=== PATIENT | female | born 1945 | race Caucasian/White ===

== ENCOUNTER 2016-12-13 12:49 | Inpatient (IN) | payer OTHER ==
[~2016-12-13] VITALS: Ht 162.6 cm; Wt 59.7 kg
[~2016-12-13 12:49] MED LIST: ADULT LOW DOSE81 M1; ADULT LOW DOSE81 M1 PO; ADVAIR 250/501 DISK IH; ALLERGY EYE DRO10 ML BOTH EYES; AMBIEN10 MG PO; AMBIEN5 MG PO; AMITIZA24 MICROGR PO; AMITRIPTYLINE H10 MG PO; AMITRIPTYLINE H50 MG PO; AMITRIPTYLINE H75 MG PO; ANTIHIST12.5 MG/5 PO; ANTIVERT25 MG PO; ASCORBIC ACID500 M3 PO; ASPIRIN81 M1 PO; ATARAX,VISTARIL25 MG PO; ATIVAN0.5 MG PO; ATIVAN1 MG PO; ATIVAN2 MG PO; AVELOX400 MG PO; Advair HFA 115/21 IH; Ativan PO; BACTRIM,SEPT1 TABLET PO; BAYER ASPIRIN325 M1 PO; BENADRYL25 MG PO; BIOTIN 5000MCG PO; BIOTIN1000 MICRO PO; BISACODYL SUPP10 MG PR; BISACODYL5 MG PO; CALCITRATE200 MG PO; CIPRO250 MG PO; CIPRO500 MG PO; CIPROFLOXACIN500 M1 PO; CITRACAL200 MG PO; COMPAZINE; CYCLOBENZAPRINE10 MG PO; Chronulac,Cephulac,E PO; DAILY VALUE1 EACH PO; DELTASONE2.5 MG PO; DILAUDID PAIN PUMP; DILAUDID4 MG PO; DIMENHYDRINATE50 MG PO; DOCUSATE SODIU100 MG PO; ELAVIL50 MG PO; ELAVIL75 MG PO; FLEXERIL10 MG PO; FLORASTOR250 MG PO; FOLIC ACID1 MG PO; FUROSEMIDE20 MG PO; GABAPENTIN100 MG PO; GABAPENTIN300 M1 PO; GABAPENTIN300 MG PO; GABAPENTIN400 MG PO; GABAPENTIN600 MG PO; K-DUR20 MEQ PO; K-Dur PO; KEFLEX500 MG PO; LASIX; LASIX80 MG PO; LEXAPRO10 MG PO; LIDODERM 5% P1 PATCH TD; LORAZEPAM0.5 MG PO; LOVENOX40 MG/0.4 SC; LYRICA100 MG PO; LYRICA75 MG PO; MEDROL DOSEPAK4 MG PO; MELOXICAM7.5 MG PO; METHOTREXATE2.5 MG PO; METOCLOPRAM5 MG/1 M1 PO; MILK OF MAGNESI10 ML PO; MIRALAX17 GM PO; MORPHINE SULFAT30 M1 PO; MORPHINE SULFAT30 M5 PO; MSIR PO; MULTIVITAMIN1 EAC2; MULTIVITAMIN1 EAC2 PO; NABUMETONE500 MG PO; NEURONTIN300 MG PO; NEURONTIN600 MG PO; NEXIUM40 MG PO; NITROFURANTOIN50 MG PO; ONE-A-DAY WOME1 EACH PO; OS-CAL 500+D T1 EAC1 PO; OXYCODONE HCL20 M1 PO; OXYCODONE HCL30 MG PO; OXYCODONE-APAP1 EACH PO; OxyCODONE PO; PANTOPRAZOLE SO40 MG PO; PAXIL10 MG PO; POLYETHYLENE GL17 GM PO; PREDNISONE1 MG PO; PREDNISONE2.5 MG PO; PREDNISONE20 MG PO; PREDNISONE5 MG PO; PRILOSEC20 MG PO; PROTONIX40 MG PO; PROVENTIL HFA6.7 GM IH; PriLOSEC OTC PO; Proventil,Ventolin H IH; REGLAN10 MG PO; REGLAN5 MG PO; RELAFEN750 MG PO; REMERON15 M2 PO; REMICADE10 MG/ML IV; ROXICODONE30 MG PO; Relafen PO; SENNA-TIME S T1 EACH PO; SUCRALFATE1 GM PO; SUCRALFATE1 GM/10 ML PO; SYMBICORT INHALER; SYMBICORT60 INHALA1; SYMBICORT60 INHALA1 IH; SYMBICORT60 INHALAT IH; Skelaxin PO; THERAGRAN1 TABLET PO; TIZANIDINE HCL4 M1 PO; TOPAMAX50 MG PO; TYLENOL EXTRA500 MG PO; TYLENOL WITH C1 EACH PO; VITAMIN D2000 UNIT PO; VITAMIN D31000 UNIT PO; ZANAFLEX4 MG PO; ZANTAC150 MG PO; ZOFRAN4 MG PO; Zithromax PO; [UNRECOGNIZED DRUG - OTHER]
[2016-12-13 14:06] LABS: HEMATOCRIT 37.9 % (36.0-46.0); MCH 25.6 PG (29.0-34.0); MCHC 31.9 G/DL (30.0-36.0); MCV 80.3 FL (83-99); PLATELET COUNT 172 K/uL (156-360); RBC DIS.WIDTH-SD 46.5 % (39-53); RED BLOOD COUNT 4.72 M/uL (3.80-5.20); WHITE BLOOD COUNT 5.5 K/uL (4.1-10.2)
[2016-12-13 14:17] LABS: CHLORIDE 102 mEq/L (99-109); POTASSIUM 3.6 mEq/L (3.7-5.4); SODIUM 137 mEq/L (136-147)
[2016-12-13 14:19] LABS: GLUCOSE 89 mg/dL (70-99)
[2016-12-13 14:20] LABS: ANION GAP 9 MEQ/L (2-14)
[2016-12-13 14:21] LABS: TOTAL BILIRUBIN 0.5 mg/dL (0.0-1.0)
[2016-12-13 14:22] LABS: ALKALINE PHOSPHATASE 77 IU/L (3-129)
[2016-12-13 14:23] LABS: GFR ESTIMATE (CALCULATED) 47 mL/min/
[2016-12-13 14:24] LABS: UREA NITROGEN (BUN) 23 mg/dL (9-23)
[2016-12-13 14:29] LABS: LIPASE 3 U/L (1.0-51.0)
[2016-12-13 15:01] LABS: ADD MIUA? YES; BILIRUBIN NEGATIVE; BLOOD NEGATIVE; COLOR AMBER ((YELLOW)); GLUCOSE (STRIP) NEGATIVE; KETONES 5; LEUKOCYTES LARGE; NITRITE POSITIVE; PROTEIN (STRIP) 30; SPECIFIC GRAVITY 1.017 (1.000-1.030); UROBILINOGEN 0.2 MG/DL (0.2-1.0)
[2016-12-13 15:28] LABS: BACTERIA 2+ /HPF; CASTS NONE SEEN /LPF; CRYSTALS NONE SEEN; EPITHELIAL CELLS 2+ /HPF; MUCUS NONE SEEN /LPF; RED BLOOD CELLS NONE SEEN /HPF (0-5); UCUL ADDED? YES; WHITE BLOOD CELLS TNTC /HPF (0-5)
[2016-12-13] MEDS ORDERED: PROTONIX40 MG PO (18:30)
[2016-12-13 22:12] VITALS: BP 125/73
[2016-12-14 07:00] VITALS: BP 121/65
[2016-12-14 09:20] LABS: HEMATOCRIT 34.4 % (36.0-46.0); MCH 26.2 PG (29.0-34.0); MCHC 31.7 G/DL (30.0-36.0); MCV 82.7 FL (83-99); MEAN PLAT.VOLUME 11.5 uM^3 (9.5-12.4); PLATELET COUNT 132 K/uL (156-360); RBC DIS.WIDTH-CV 16.5 % (11.8-14.6); RBC DIS.WIDTH-SD 49.1 % (39-53); RED BLOOD COUNT 4.16 M/uL (3.80-5.20); WHITE BLOOD COUNT 3.4 K/uL (4.1-10.2)
[2016-12-14 09:23] LABS: ANION GAP 8 MEQ/L (2-14); CHLORIDE 110 MEQ/L (99-109); GFR ESTIMATE (CALCULATED) > 59 mL/min/; GLUCOSE 74 mg/dL (70-99); POTASSIUM 3.7 MEQ/L (3.7-5.4); SAMPLE HEMOLYSIS CHECK 0; SAMPLE ICTERIC CHECK 0; SAMPLE LIPEMIA CHECK 0; SODIUM 141 MEQ/L (136-147); UREA NITROGEN (BUN) 11 mg/dL (9-23)
[2016-12-14 09:24] LABS: INTER. NORMALIZED RATIO 1.3; PROTHROMBIN TIME 12.9 (9.2-11.2)
[2016-12-14 15:11] VITALS: BP 134/76
[2016-12-14 18:10] VITALS: BP 144/82
[2016-12-15 06:48] LABS: EOSINOPHIL (%) 3.9 % (0-5); EOSINOPHIL COUNT 0.2 K/uL (0-0.3); HEMATOCRIT 34.1 % (36.0-46.0); IMMATURE GRANULOCYTE (%) 0.5 % (0.0-0.7); INSTRUMENT ABS NEUTROPHIL CT 2.2 K/uL; LYMPHOCYTE COUNT 1.2 K/uL (1.0-2.8); MCH 25.8 PG (29.0-34.0); MCHC 31.7 G/DL (30.0-36.0); MCV 81.6 FL (83-99); MEAN PLAT.VOLUME 11.5 uM^3 (9.5-12.4); MONOCYTE (%) 5.7 % (3-12); MONOCYTE COUNT 0.2 K/uL (0-0.8); NEUTROPHIL (%) 57.2 % (45-76); NEUTROPHIL COUNT 2.2 K/uL (1.8-6.4); PLATELET COUNT 155 K/uL (156-360); RBC DIS.WIDTH-CV 16.3 % (11.8-14.6); RBC DIS.WIDTH-SD 48.8 % (39-53); RED BLOOD COUNT 4.18 M/uL (3.80-5.20); WHITE BLOOD COUNT 3.9 K/uL (4.1-10.2)
[2016-12-15 07:19] LABS: ALKALINE PHOSPHATASE 66 IU/L (3-129); ANION GAP 8 MEQ/L (2-14); CHLORIDE 111 MEQ/L (99-109); GFR ESTIMATE (CALCULATED) > 59 mL/min/; GLUCOSE 72 mg/dL (70-99); POTASSIUM 3.8 MEQ/L (3.7-5.4); SAMPLE HEMOLYSIS CHECK 0; SAMPLE ICTERIC CHECK 0; SAMPLE LIPEMIA CHECK 0; SODIUM 140 MEQ/L (136-147); TOTAL BILIRUBIN 0.4 MG/DL (0.0-1.0); UREA NITROGEN (BUN) 5 mg/dL (9-23)
[2016-12-15] MEDS ORDERED: SUCRALFATE1 GM/10 ML PO (07:44)
[2016-12-15] MEDS ORDERED: PANTOPRAZOLE SO40 MG PO (07:44)
[2016-12-15 08:14] VITALS: BP 133/90
== END 2016-12-15 11:47 | disposition home or self-care (01) | DRG 683 ==
LOC: EME 12:49 → EDOF 20:08 → 5EAST 20:08
PROVIDERS: Nurse Practitioner Adult Health; Physician Assistant Medical
PROC: 0DB58ZX Excision of Esophagus, Via Natural or Artificial Opening Endoscopic, Diagnostic (ICD-10-PCS; principal; 2016-12-14)
DX: N17.9 Acute kidney failure, unspecified (principal); K22.10 Ulcer of esophagus without bleeding; E86.0 Dehydration; E87.6 Hypokalemia; I95.9 Hypotension, unspecified; L89.150 Pressure ulcer of sacral region, unstageable; J44.9 Chronic obstructive pulmonary disease, unspecified; K21.9 Gastro-esophageal reflux disease without esophagitis; K31.84 Gastroparesis; I10 Essential (primary) hypertension; L40.9 Psoriasis, unspecified; Z86.718 Personal history of other venous thrombosis and embolism; Z87.891 Personal history of nicotine dependence; Z96.653 Presence of artificial knee joint, bilateral; K59.09 Other constipation; F11.20 Opioid dependence, uncomplicated; G89.29 Other chronic pain; M06.9 Rheumatoid arthritis, unspecified; Z79.52 Long term (current) use of systemic steroids; Z96.643 Presence of artificial hip joint, bilateral; E11.43 Type 2 diabetes mellitus with diabetic autonomic (poly)neuropathy; R13.10 Dysphagia, unspecified; E04.1 Nontoxic single thyroid nodule; F32.9 Major depressive disorder, single episode, unspecified; F41.9 Anxiety disorder, unspecified; G43.909 Migraine, unspecified, not intractable, without status migrainosus; L40.50 Arthropathic psoriasis, unspecified
CPT/HCPCS: 74177; 80053; 80069; 81003; 83605; 83690; 85025; 85027; 85610; 87077; 87086; 87186; 87493; 88305; 88312; 88342 TC; 94640; 94640 76; 99281; 99285; J0696; J0744; J1200; J1650; J2270; J2405; J2765; J3010; J3480; J7030; J7050; J7512; S0030

== ENCOUNTER 2017-03-05 16:19 | Emergency (ER) | payer OTHER ==
[~2017-03-05] VITALS: Ht 160 cm; Wt 58.8 kg
[2017-03-05] MEDS ORDERED: OXYCODONE HCL10 MG PO (16:48)
[2017-03-05] MEDS ORDERED: SULFAMETHOXAZO1 EAC5 PO (16:50)
[2017-03-05] MEDS ORDERED: DURAGESIC75 MCG TD (16:51)
[2017-03-05 17:56] LABS: ADD MIUA? YES; BILIRUBIN NEGATIVE; BLOOD NEGATIVE; COLOR STRAW ((YELLOW)); GLUCOSE (STRIP) NEGATIVE; KETONES NEGATIVE; LEUKOCYTES TRACE; NITRITE NEGATIVE; PROTEIN (STRIP) NEGATIVE; SPECIFIC GRAVITY 1.009 (1.000-1.030); UROBILINOGEN 0.2 MG/DL (0.2-1.0)
[2017-03-05 18:00] LABS: HEMATOCRIT 38.6 % (36.0-46.0); MCH 25.2 PG (29.0-34.0); MCHC 31.9 G/DL (30.0-36.0); MCV 79.1 FL (83-99); MEAN PLAT.VOLUME 10.8 uM^3 (9.5-12.4); PLATELET COUNT 147 K/uL (156-360); RBC DIS.WIDTH-CV 14.6 % (11.8-14.6); RED BLOOD COUNT 4.88 M/uL (3.80-5.20); WHITE BLOOD COUNT 5.1 K/uL (4.1-10.2)
[2017-03-05 18:01] LABS: BACTERIA NONE SEEN /HPF; EPITHELIAL CELLS RARE /HPF; MUCUS NONE SEEN /LPF; RED BLOOD CELLS 0-5 /HPF (0-5); UCUL ADDED? YES
[2017-03-05 18:10] LABS: CHLORIDE 103 mEq/L (99-109); POTASSIUM 3.3 mEq/L (3.7-5.4); SODIUM 138 mEq/L (136-147)
[2017-03-05 18:12] LABS: GLUCOSE 108 mg/dL (70-99)
[2017-03-05 18:13] LABS: ANION GAP 11 MEQ/L (2-14)
[2017-03-05 18:16] LABS: GFR ESTIMATE (CALCULATED) > 59 mL/min/
[2017-03-05 18:17] LABS: UREA NITROGEN (BUN) 12 mg/dL (9-23)
[2017-03-05 18:22] LABS: TROP-I INTERPRETATION NEGATIVE; TROPONIN-I < 0.01 ng/mL (0.0-0.30)
[2017-03-05] MEDS ORDERED: K-DUR20 MEQ PO (20:52)
[2017-03-05 21:09] VITALS: BP 161/110
== END 2017-03-05 21:19 | disposition home or self-care (01) ==
LOC: EME 16:19
PROVIDERS: Emergency Medicine
DX: E87.6 Hypokalemia (principal); E86.0 Dehydration; G89.29 Other chronic pain; R11.2 Nausea with vomiting, unspecified; Z98.890 Other specified postprocedural states; Z79.891 Long term (current) use of opiate analgesic; Z90.49 Acquired absence of other specified parts of digestive tract; Z85.01 Personal history of malignant neoplasm of esophagus; Z98.84 Bariatric surgery status; Z87.442 Personal history of urinary calculi; Z79.52 Long term (current) use of systemic steroids; J44.9 Chronic obstructive pulmonary disease, unspecified; Z87.891 Personal history of nicotine dependence
CPT/HCPCS: 71010; 80048; 81003; 84484; 85027; 87077; 87086; 87186; 99281; 99285; J2270; J2405; J7030

== ENCOUNTER 2017-03-28 13:21 | Inpatient (IN) | payer OTHER ==
[~2017-03-28] VITALS: Ht 160 cm; Wt 55.3 kg
[~2017-03-28 13:21] MED LIST changes: +DURAGESIC75 MCG TD; +OXYCODONE HCL10 MG PO; +SULFAMETHOXAZO1 EAC5 PO
[2017-03-28] MEDS ORDERED: GABAPENTIN400 MG PO (13:43)
[2017-03-28 15:10] LABS: ADD MIUA? YES; BILIRUBIN NEGATIVE; BLOOD SMALL; COLOR AMBER ((YELLOW)); GLUCOSE (STRIP) NEGATIVE; KETONES NEGATIVE; LEUKOCYTES LARGE; NITRITE NEGATIVE; PROTEIN (STRIP) 100; SPECIFIC GRAVITY 1.018 (1.000-1.030); UROBILINOGEN 0.2 MG/DL (0.2-1.0)
[2017-03-28 15:24] LABS: BACTERIA RARE /HPF; EPITHELIAL CELLS NONE SEEN /HPF; MUCUS NONE SEEN /LPF; RED BLOOD CELLS 15-20 /HPF (0-5); UCUL ADDED? YES; WHITE BLOOD CELLS TNTC /HPF (0-5); WHITE BLOOD CELLS CLUMP MANY /HPF (0-5)
[2017-03-28] MEDS ORDERED: MACROBID100 MG PO (15:34)
[2017-03-28 17:08] LABS: EOSINOPHIL (%) 1.2 % (0-5); EOSINOPHIL COUNT 0.1 K/uL (0-0.3); HEMATOCRIT 38.5 % (36.0-46.0); IMMATURE GRANULOCYTE (%) 0.2 % (0.0-0.7); INSTRUMENT ABS NEUTROPHIL CT 3.5 K/uL; LYMPHOCYTE COUNT 1.2 K/uL (1.0-2.8); MCH 25.8 PG (29.0-34.0); MCHC 31.2 G/DL (30.0-36.0); MCV 82.8 FL (83-99); MEAN PLAT.VOLUME 11.6 uM^3 (9.5-12.4); MONOCYTE (%) 6.8 % (3-12); MONOCYTE COUNT 0.4 K/uL (0-0.8); NEUTROPHIL (%) 67.5 % (45-76); NEUTROPHIL COUNT 3.5 K/uL (1.8-6.4); PLATELET COUNT 149 K/uL (156-360); RBC DIS.WIDTH-CV 15.8 % (11.8-14.6); RBC DIS.WIDTH-SD 47.7 % (39-53); RED BLOOD COUNT 4.65 M/uL (3.80-5.20); WHITE BLOOD COUNT 5.1 K/uL (4.1-10.2)
[2017-03-28 17:09] LABS: CHLORIDE 102 mEq/L (99-109); POTASSIUM 4.6 mEq/L (3.7-5.4); SODIUM 136 mEq/L (136-147)
[2017-03-28 17:10] LABS: MAGNESIUM 1.9 mg/dL (1.3-2.7)
[2017-03-28 17:12] LABS: GLUCOSE 94 mg/dL (70-99)
[2017-03-28 17:13] LABS: ANION GAP 11 MEQ/L (2-14); TOTAL BILIRUBIN 0.4 mg/dL (0.0-1.0)
[2017-03-28 17:15] LABS: ALKALINE PHOSPHATASE 83 IU/L (3-129); GFR ESTIMATE (CALCULATED) 37 mL/min/
[2017-03-28 17:16] LABS: UREA NITROGEN (BUN) 27 mg/dL (9-23)
[2017-03-28] MEDS ORDERED: OXYCODONE HCL30 MG PO (18:40)
[2017-03-28] MEDS ORDERED: MORPHINE SULFAT30 M1 PO (18:48)
[2017-03-28] MEDS ORDERED: SUCRALFATE1 GM PO (18:50)
[2017-03-28] MEDS ORDERED: METOCLOPRAMIDE10 MG PO (18:51)
[2017-03-28 22:45] VITALS: BP 115/71
[2017-03-29 04:26] VITALS: BP 118/68
[2017-03-29 05:07] LABS: EOSINOPHIL (%) 3.7 % (0-5); EOSINOPHIL COUNT 0.2 K/uL (0-0.3); HEMATOCRIT 33.7 % (36.0-46.0); IMMATURE GRANULOCYTE (%) 0.2 % (0.0-0.7); INSTRUMENT ABS NEUTROPHIL CT 2.7 K/uL; LYMPHOCYTE COUNT 1.5 K/uL (1.0-2.8); MCH 27.1 PG (29.0-34.0); MCV 84.5 FL (83-99); MEAN PLAT.VOLUME 11.5 uM^3 (9.5-12.4); MONOCYTE (%) 6.3 % (3-12); MONOCYTE COUNT 0.3 K/uL (0-0.8); NEUTROPHIL (%) 57.5 % (45-76); NEUTROPHIL COUNT 2.7 K/uL (1.8-6.4); PLATELET COUNT 121 K/uL (156-360); RBC DIS.WIDTH-CV 15.8 % (11.8-14.6); RBC DIS.WIDTH-SD 48.7 % (39-53); RED BLOOD COUNT 3.99 M/uL (3.80-5.20); WHITE BLOOD COUNT 4.6 K/uL (4.1-10.2)
[2017-03-29 05:44] LABS: ANION GAP 7 MEQ/L (2-14); CHLORIDE 106 MEQ/L (99-109); GFR ESTIMATE (CALCULATED) 58 mL/min/; GLUCOSE 95 mg/dL (70-99); SAMPLE HEMOLYSIS CHECK 0; SAMPLE ICTERIC CHECK 0; SAMPLE LIPEMIA CHECK 0; SODIUM 138 MEQ/L (136-147); UREA NITROGEN (BUN) 21 mg/dL (9-23)
[2017-03-29 07:47] VITALS: BP 138/89
[2017-03-29 15:13] VITALS: BP 93/58
[2017-03-29 20:30] VITALS: BP 111/53
[2017-03-29 23:24] VITALS: BP 102/61
[2017-03-30 04:29] VITALS: BP 120/67
[2017-03-30 06:11] LABS: EOSINOPHIL (%) 5.1 % (0-5); EOSINOPHIL COUNT 0.2 K/uL (0-0.3); HEMATOCRIT 33.1 % (36.0-46.0); IMMATURE GRANULOCYTE (%) 0.2 % (0.0-0.7); INSTRUMENT ABS NEUTROPHIL CT 2.1 K/uL; LYMPHOCYTE COUNT 1.6 K/uL (1.0-2.8); MCH 26.8 PG (29.0-34.0); MCV 83.6 FL (83-99); MEAN PLAT.VOLUME 11.5 uM^3 (9.5-12.4); MONOCYTE COUNT 0.3 K/uL (0-0.8); NEUTROPHIL (%) 50.4 % (45-76); NEUTROPHIL COUNT 2.1 K/uL (1.8-6.4); PLATELET COUNT 127 K/uL (156-360); RBC DIS.WIDTH-CV 15.9 % (11.8-14.6); RBC DIS.WIDTH-SD 48.9 % (39-53); RED BLOOD COUNT 3.96 M/uL (3.80-5.20); WHITE BLOOD COUNT 4.2 K/uL (4.1-10.2)
[2017-03-30 06:35] LABS: ALKALINE PHOSPHATASE 61 IU/L (3-129); ANION GAP 7 MEQ/L (2-14); CHLORIDE 107 MEQ/L (99-109); GFR ESTIMATE (CALCULATED) > 59 mL/min/; GLUCOSE 99 mg/dL (70-99); SAMPLE HEMOLYSIS CHECK 0; SAMPLE ICTERIC CHECK 0; SAMPLE LIPEMIA CHECK 0; SODIUM 140 MEQ/L (136-147); TOTAL BILIRUBIN 0.3 MG/DL (0.0-1.0); UREA NITROGEN (BUN) 12 mg/dL (9-23)
[2017-03-30 07:39] VITALS: BP 132/80
[2017-03-30 15:35] VITALS: BP 112/57
[2017-03-30 19:25] VITALS: BP 126/74
[2017-03-30 23:13] VITALS: BP 106/61
[2017-03-31 07:45] VITALS: BP 127/74
[2017-03-31] MEDS ORDERED: CEFUROXIME500 MG PO ×2 (08:04→13:08)
[2017-03-31] MEDS ORDERED: ROXICODONE30 MG PO (08:07)
[2017-03-31] MEDS ORDERED: MORPHINE SULFAT30 M2 PO (08:07)
[2017-03-31] MEDS ORDERED: DURAGESIC75 MCG TD (08:07)
[2017-03-31 15:35] VITALS: BP 130/78
== END 2017-03-31 15:38 | DRG 918 ==
LOC: EME 13:21 → 3EAST 20:15 → EDOF 20:15 → ENRESERV 20:20 → 3EAST 22:33
PROVIDERS: Emergency Medicine; Hospitalist; Nurse Practitioner Adult Health
DX: T40.601A Poisoning by unspecified narcotics, accidental (unintentional), initial encounter (principal); N39.0 Urinary tract infection, site not specified; E11.9 Type 2 diabetes mellitus without complications; I10 Essential (primary) hypertension; J44.9 Chronic obstructive pulmonary disease, unspecified; W01.0XXA Fall on same level from slipping, tripping and stumbling without subsequent striking against object, initial encounter; E86.0 Dehydration; R29.6 Repeated falls; F41.9 Anxiety disorder, unspecified; L02.419 Cutaneous abscess of limb, unspecified; M79.7 Fibromyalgia; N28.9 Disorder of kidney and ureter, unspecified; M54.12 Radiculopathy, cervical region; K59.00 Constipation, unspecified; G62.9 Polyneuropathy, unspecified; G89.29 Other chronic pain; M25.511 Pain in right shoulder; L03.119 Cellulitis of unspecified part of limb; M47.816 Spondylosis without myelopathy or radiculopathy, lumbar region; K21.9 Gastro-esophageal reflux disease without esophagitis; Z98.84 Bariatric surgery status; Z96.649 Presence of unspecified artificial hip joint; Z85.01 Personal history of malignant neoplasm of esophagus; Z98.1 Arthrodesis status; Z87.442 Personal history of urinary calculi; Z87.440 Personal history of urinary (tract) infections; Z87.891 Personal history of nicotine dependence; Z91.81 History of falling
CPT/HCPCS: 71020; 73030; 80048; 80053; 81003; 83735; 85025; 87086; 93005; 99202; 99281; 99285; J0696; J1650; J7030; J7050; J7512

== ENCOUNTER 2017-04-15 13:22 | Emergency (ER) | payer OTHER ==
[~2017-04-15] VITALS: Ht 160 cm; Wt 47.0 kg
[~2017-04-15 13:22] MED LIST changes: +CEFUROXIME500 MG PO; +MACROBID100 MG PO; +METOCLOPRAMIDE10 MG PO; +MORPHINE SULFAT30 M2 PO
[2017-04-15 14:48] LABS: HEMATOCRIT 36.9 % (36.0-46.0); MCV 81.5 FL (83-99); MEAN PLAT.VOLUME 10.8 uM^3 (9.5-12.4); PLATELET COUNT 162 K/uL (156-360); RBC DIS.WIDTH-CV 14.8 % (11.8-14.6); RBC DIS.WIDTH-SD 44.5 % (39-53); RED BLOOD COUNT 4.53 M/uL (3.80-5.20); WHITE BLOOD COUNT 4.1 K/uL (4.1-10.2)
[2017-04-15 14:58] LABS: CHLORIDE 108 mEq/L (99-109); POTASSIUM 3.7 mEq/L (3.7-5.4); SODIUM 139 mEq/L (136-147)
[2017-04-15 14:59] LABS: GLUCOSE 106 mg/dL (70-99)
[2017-04-15 14:59] LABS: ADD MIUA? YES; BILIRUBIN NEGATIVE; BLOOD NEGATIVE; COLOR YELLOW ((YELLOW)); GLUCOSE (STRIP) NEGATIVE; KETONES NEGATIVE; LEUKOCYTES SMALL; NITRITE NEGATIVE; PROTEIN (STRIP) NEGATIVE; UROBILINOGEN 0.2 MG/DL (0.2-1.0)
[2017-04-15 15:01] LABS: ANION GAP 7 MEQ/L (2-14)
[2017-04-15 15:03] LABS: GFR ESTIMATE (CALCULATED) > 59 mL/min/
[2017-04-15 15:04] LABS: UREA NITROGEN (BUN) 10 mg/dL (9-23)
[2017-04-15 15:10] LABS: TROP-I INTERPRETATION NEGATIVE; TROPONIN-I < 0.01 ng/mL (0.0-0.30)
[2017-04-15 15:13] LABS: BACTERIA NONE SEEN /HPF; EPITHELIAL CELLS RARE /HPF; MUCUS NONE SEEN /LPF; RED BLOOD CELLS 0-5 /HPF (0-5); UCUL ADDED? YES; WHITE BLOOD CELLS 20-30 /HPF (0-5)
[2017-04-15] MEDS ORDERED: KEFLEX250 MG PO (16:36)
[2017-04-15 21:22] VITALS: BP 167/97
== END 2017-04-15 21:24 ==
LOC: EME 13:22
PROVIDERS: Emergency Medicine
DX: N39.0 Urinary tract infection, site not specified (principal); R41.82 Altered mental status, unspecified; T40.4X1A Poisoning by other synthetic narcotics, accidental (unintentional), initial encounter; I44.0 Atrioventricular block, first degree; J44.9 Chronic obstructive pulmonary disease, unspecified; K21.9 Gastro-esophageal reflux disease without esophagitis; M79.7 Fibromyalgia; G89.29 Other chronic pain; M54.2 Cervicalgia; M54.9 Dorsalgia, unspecified; F41.9 Anxiety disorder, unspecified; F32.9 Major depressive disorder, single episode, unspecified; Z85.01 Personal history of malignant neoplasm of esophagus; Z98.84 Bariatric surgery status; Z96.643 Presence of artificial hip joint, bilateral; Z96.653 Presence of artificial knee joint, bilateral; Z87.891 Personal history of nicotine dependence
CPT/HCPCS: 71010; 80048; 81003; 84484; 85027; 87086; 93005; 99281; 99285; J2310

== ENCOUNTER 2017-04-24 15:40 | Inpatient (IN) | payer OTHER ==
[~2017-04-24] VITALS: Ht 160 cm; Wt 55.8 kg
[~2017-04-24 15:40] MED LIST changes: +KEFLEX250 MG PO
[2017-04-24 17:08] LABS: BASOPHIL COUNT 0.1 K/uL (0-0.1); EOSINOPHIL (%) 0.3 % (0-5); HEMATOCRIT 37.9 % (36.0-46.0); IMMATURE GRANULOCYTE (%) 0.4 % (0.0-0.7); INSTRUMENT ABS NEUTROPHIL CT 6.5 K/uL; LYMPHOCYTE COUNT 0.9 K/uL (1.0-2.8); MCH 25.7 PG (29.0-34.0); MCHC 31.9 G/DL (30.0-36.0); MCV 80.6 FL (83-99); MEAN PLAT.VOLUME 11.1 uM^3 (9.5-12.4); MONOCYTE (%) 3.6 % (3-12); MONOCYTE COUNT 0.3 K/uL (0-0.8); NEUTROPHIL (%) 83.5 % (45-76); NEUTROPHIL COUNT 6.5 K/uL (1.8-6.4); PLATELET COUNT 184 K/uL (156-360); RBC DIS.WIDTH-CV 14.6 % (11.8-14.6); RBC DIS.WIDTH-SD 42.8 % (39-53); WHITE BLOOD COUNT 7.7 K/uL (4.1-10.2)
[2017-04-24 17:16] LABS: CHLORIDE 102 mEq/L (99-109)
[2017-04-24 17:17] LABS: SODIUM 138 mEq/L (136-147)
[2017-04-24 17:19] LABS: GLUCOSE 124 mg/dL (70-99)
[2017-04-24 17:20] LABS: ANION GAP 14 MEQ/L (2-14)
[2017-04-24 17:21] LABS: TOTAL BILIRUBIN 0.3 mg/dL (0.0-1.0)
[2017-04-24 17:22] LABS: ALKALINE PHOSPHATASE 92 IU/L (3-129); GFR ESTIMATE (CALCULATED) > 59 mL/min/
[2017-04-24 17:24] LABS: UREA NITROGEN (BUN) 11 mg/dL (9-23)
[2017-04-24 17:29] LABS: TROP-I INTERPRETATION NEGATIVE; TROPONIN-I < 0.01 ng/mL (0.0-0.30)
[2017-04-24 17:30] LABS: ADD MIUA? YES; BILIRUBIN NEGATIVE; BLOOD MODERATE; COLOR YELLOW ((YELLOW)); GLUCOSE (STRIP) NEGATIVE; KETONES NEGATIVE; LEUKOCYTES LARGE; NITRITE NEGATIVE; PROTEIN (STRIP) NEGATIVE; UROBILINOGEN 0.2 MG/DL (0.2-1.0)
[2017-04-24 17:48] LABS: AMORPHOUS URATES CRYSTALS 2+; BACTERIA 1+ /HPF; CASTS NONE SEEN /LPF; CRYSTALS PRESENT; EPITHELIAL CELLS 1+ /HPF; MUCUS NONE SEEN /LPF; RED BLOOD CELLS 20-30 /HPF (0-5); WHITE BLOOD CELLS 40-50 /HPF (0-5)
[2017-04-24 19:08] LABS: AMPHETAMINE NEGATIVE (500 ng/mL); BARBITURATES NEGATIVE (200 ng/mL); BENZODIAZEPINES PRESUMPTIVE POSITIVE (150 ng/mL); COCAINE NEGATIVE (150 ng/mL); INTERNAL CONTROLS VALID? YES; METHADONE NEGATIVE (200 ng/mL); METHAMPHETAMINE NEGATIVE (500 ng/mL); OPIATES (MORPHINE) PRESUMPTIVE POSITIVE (100 ng/mL); OXYCODONE PRESUMPTIVE POSITIVE (100 ng/mL); PHENCYCLIDINE NEGATIVE (25 ng/mL); PROPOXYPHENE NEGATIVE (300 ng/mL); THC CANNABINOIDS NEGATIVE (50 ng/mL); TRICYCLIC ANTIDEPRESSANTS PRESUMPTIVE POSITIVE (300 ng/mL)
[2017-04-24 19:09] LABS: ADD MEDTOX COMMENT Y
[2017-04-24 19:36] LABS: BENZODIAZEPINES QUANT VALUE 0 NG/ML; BENZODIAZEPINES, URINE SCREEN Negative (200 ng/mL)
[2017-04-24 22:57] VITALS: BP 203/112
[2017-04-25 01:48] VITALS: BP 112/64
[2017-04-25 03:20] LABS: METH RESISTANT S AUREUS PCR NEGATIVE (NEGATIVE)
[2017-04-25 03:25] LABS: PROBE CHECK PASS; SPECIMEN PROCESSING CONTROL PASS
[2017-04-25 04:54] VITALS: BP 108/68
[2017-04-25 06:54] LABS: HEMATOCRIT 36.4 % (36.0-46.0); MCH 26.9 PG (29.0-34.0); MCHC 33.5 G/DL (30.0-36.0); MCV 80.2 FL (83-99); MEAN PLAT.VOLUME 11.3 uM^3 (9.5-12.4); PLATELET COUNT 184 K/uL (156-360); RBC DIS.WIDTH-CV 14.7 % (11.8-14.6); RBC DIS.WIDTH-SD 43.3 % (39-53); RED BLOOD COUNT 4.54 M/uL (3.80-5.20); WHITE BLOOD COUNT 5.4 K/uL (4.1-10.2)
[2017-04-25 07:18] LABS: ALKALINE PHOSPHATASE 80 IU/L (3-129); ANION GAP 10 MEQ/L (2-14); CHLORIDE 106 MEQ/L (99-109); GFR ESTIMATE (CALCULATED) > 59 mL/min/; GLUCOSE 96 mg/dL (70-99); POTASSIUM 3.7 MEQ/L (3.7-5.4); SAMPLE HEMOLYSIS CHECK 0; SAMPLE ICTERIC CHECK 0; SAMPLE LIPEMIA CHECK 0; SODIUM 139 MEQ/L (136-147); TOTAL BILIRUBIN 0.4 MG/DL (0.0-1.0); UREA NITROGEN (BUN) 10 mg/dL (9-23)
[2017-04-25] MEDS ORDERED: OXYCODONE HCL10 MG PO (11:05)
[2017-04-25] MEDS ORDERED: TYLENOL SINUS1 EA16 PO (11:05)
[2017-04-25 12:08] VITALS: BP 110/67
[2017-04-25 17:12] VITALS: BP 112/74
[2017-04-25 19:33] VITALS: BP 99/65
[2017-04-26 00:08] VITALS: BP 77/49
[2017-04-26 04:41] VITALS: BP 103/54
[2017-04-26 08:30] VITALS: BP 102/57
[2017-04-26 13:02] VITALS: BP 112/65
[2017-04-26 15:20] VITALS: BP 152/78
[2017-04-26 19:45] VITALS: BP 116/65
[2017-04-27 00:03] VITALS: BP 103/60
[2017-04-27 04:35] VITALS: BP 141/82
[2017-04-27 08:15] VITALS: BP 166/87
[2017-04-27] MEDS ORDERED: OXYCODONE HCL10 MG PO (08:32)
[2017-04-27] MEDS ORDERED: ATIVAN0.5 MG PO (08:32)
[2017-04-27 12:20] VITALS: BP 103/52
== END 2017-04-27 16:00 | DRG 690 ==
LOC: EME 15:40 → 5WEST 21:19 → EDOF 21:19 → ENRESERV 21:20 → EDOF 21:31 → ENRESERV 21:32 → 5WEST 22:38 → ENRESERV 04-25 15:43 → CANRESERV 04-25 15:43 → 5WEST 04-27 16:00
PROVIDERS: Emergency Medicine; Internal Medicine
DX: N39.0 Urinary tract infection, site not specified (principal); G89.29 Other chronic pain; F11.10 Opioid abuse, uncomplicated; F32.9 Major depressive disorder, single episode, unspecified; F41.9 Anxiety disorder, unspecified; G43.909 Migraine, unspecified, not intractable, without status migrainosus; E04.1 Nontoxic single thyroid nodule; B96.89 Other specified bacterial agents as the cause of diseases classified elsewhere; K21.9 Gastro-esophageal reflux disease without esophagitis; M79.7 Fibromyalgia; R29.6 Repeated falls; I10 Essential (primary) hypertension; J44.9 Chronic obstructive pulmonary disease, unspecified; Z96.659 Presence of unspecified artificial knee joint; Z85.01 Personal history of malignant neoplasm of esophagus; Z98.84 Bariatric surgery status; Z87.891 Personal history of nicotine dependence; Z87.442 Personal history of urinary calculi; Z79.899 Other long term (current) drug therapy
CPT/HCPCS: 70450; 72125; 80053; 81003; 84484; 84999; 85025; 85027; 87040; 87077; 87086; 87186; 87641; 93005; 99281; 99285; G0378; G8978 GP CH; G8979 GP CH; G8980 GP CH; G8987 GO CH; G8988 GO CH; G8989 GO CH; J0360; J0696; J1644; J7030; J7050; J7512

== ENCOUNTER 2017-05-23 11:00 | Emergency (ER) | payer OTHER ==
[~2017-05-23] VITALS: Ht 167.6 cm; Wt 59.7 kg
[~2017-05-23 11:00] MED LIST changes: +TYLENOL SINUS1 EA16 PO
[2017-05-23 11:52] LABS: HEMATOCRIT 35.4 % (36.0-46.0); MCH 26.3 PG (29.0-34.0); MCHC 32.5 G/DL (30.0-36.0); RBC DIS.WIDTH-CV 15.1 % (11.8-14.6); RBC DIS.WIDTH-SD 44.4 % (39-53); RED BLOOD COUNT 4.37 M/uL (3.80-5.20); WHITE BLOOD COUNT 6.7 K/uL (4.1-10.2)
[2017-05-23 12:00] LABS: CHLORIDE 107 mEq/L (99-109); POTASSIUM 3.7 mEq/L (3.7-5.4); SODIUM 139 mEq/L (136-147)
[2017-05-23 12:02] LABS: GLUCOSE 114 mg/dL (70-99)
[2017-05-23 12:04] LABS: ANION GAP 12 MEQ/L (2-14); TOTAL BILIRUBIN 0.5 mg/dL (0.0-1.0)
[2017-05-23 12:06] LABS: ALKALINE PHOSPHATASE 106 IU/L (3-129); GFR ESTIMATE (CALCULATED) > 59 mL/min/
[2017-05-23 12:07] LABS: UREA NITROGEN (BUN) 11 mg/dL (9-23)
[2017-05-23 12:29] LABS: MEAN PLAT.VOLUME 11.4 uM^3 (9.5-12.4); PLAT.SUFFICIENCY DECREASED
[2017-05-23 12:30] LABS: PLATELET COUNT 118 K/uL (156-360)
[2017-05-23 13:01] LABS: ADD MIUA? YES; BILIRUBIN NEGATIVE; BLOOD SMALL; COLOR YELLOW ((YELLOW)); GLUCOSE (STRIP) NEGATIVE; KETONES NEGATIVE; LEUKOCYTES MODERATE; NITRITE NEGATIVE; PROTEIN (STRIP) NEGATIVE; SPECIFIC GRAVITY 1.011 (1.000-1.030); UROBILINOGEN 0.2 MG/DL (0.2-1.0)
[2017-05-23 13:11] LABS: AMPHETAMINE NEGATIVE (500 ng/mL); BARBITURATES NEGATIVE (200 ng/mL); BENZODIAZEPINES PRESUMPTIVE POSITIVE (150 ng/mL); COCAINE NEGATIVE (150 ng/mL); METHADONE NEGATIVE (200 ng/mL); METHAMPHETAMINE PRESUMPTIVE POSITIVE (500 ng/mL); OPIATES (MORPHINE) PRESUMPTIVE POSITIVE (100 ng/mL); OXYCODONE PRESUMPTIVE POSITIVE (100 ng/mL); PHENCYCLIDINE NEGATIVE (25 ng/mL); PROPOXYPHENE NEGATIVE (300 ng/mL); THC CANNABINOIDS NEGATIVE (50 ng/mL); TRICYCLIC ANTIDEPRESSANTS PRESUMPTIVE POSITIVE (300 ng/mL)
[2017-05-23 13:12] LABS: ADD MEDTOX COMMENT Y; INTERNAL CONTROLS VALID? YES
[2017-05-23 13:16] LABS: UCUL ADDED? NO
[2017-05-23 13:46] LABS: BENZODIAZEPINES QUANT VALUE 0 NG/ML; BENZODIAZEPINES, URINE SCREEN Negative (200 ng/mL)
[2017-05-23 17:59] VITALS: BP 142/70
== END 2017-05-23 18:20 | disposition home or self-care (01) ==
LOC: EME → EDBD 11:00 → EME 18:20
PROVIDERS: Emergency Medicine
DX: T40.2X1A Poisoning by other opioids, accidental (unintentional), initial encounter (principal); F11.23 Opioid dependence with withdrawal; R41.82 Altered mental status, unspecified; M79.7 Fibromyalgia; J44.9 Chronic obstructive pulmonary disease, unspecified; K21.9 Gastro-esophageal reflux disease without esophagitis; F41.9 Anxiety disorder, unspecified; F32.9 Major depressive disorder, single episode, unspecified; G89.29 Other chronic pain; Z87.440 Personal history of urinary (tract) infections; Z87.442 Personal history of urinary calculi; Z85.01 Personal history of malignant neoplasm of esophagus; Z98.84 Bariatric surgery status; Z96.643 Presence of artificial hip joint, bilateral; Z96.653 Presence of artificial knee joint, bilateral; Z87.891 Personal history of nicotine dependence; Z88.5 Allergy status to narcotic agent; Z91.040 Latex allergy status
CPT/HCPCS: 80053; 81003; 84999; 85027; 99281; 99285; J2060; J2270; J2310; J2405; J7030

== ENCOUNTER 2017-07-03 10:19 | Inpatient (IN) | payer OTHER ==
[~2017-07-03] VITALS: Ht 152.4 cm; Wt 53.3 kg
[2017-07-03 11:30] LABS: APPEARANCE SL.HAZY ((CLEAR)); BILIRUBIN NEGATIVE; BLOOD NEGATIVE; COLOR YELLOW ((YELLOW)); GLUCOSE (STRIP) NEGATIVE; KETONES 20; LEUKOCYTES SMALL; NITRITE POSITIVE; PROTEIN (STRIP) NEGATIVE; SPECIFIC GRAVITY 1.009 (1.000-1.030); UROBILINOGEN 0.2 MG/DL (0.2-1.0)
[2017-07-03 11:34] LABS: BACTERIA 1+ /HPF; EPITHELIAL CELLS RARE /HPF; MUCUS TRACE /LPF; RED BLOOD CELLS 0-5 /HPF (0-5); UCUL ADDED? YES; WHITE BLOOD CELLS 40-50 /HPF (0-5)
[2017-07-03 14:44] LABS: BASOPHIL (%) 0.2 % (0-1); EOSINOPHIL (%) 0 % (0-5); HEMATOCRIT 39.3 % (36.0-46.0); IMMATURE GRANULOCYTE (%) 0.2 % (0.0-0.7); LYMPHOCYTE (%) 10.7 % (15-42); LYMPHOCYTE COUNT 1.1 K/uL (1.0-2.8); MCH 25.7 PG (29.0-34.0); MCHC 33.1 G/DL (30.0-36.0); MONOCYTE (%) 5.6 % (3-12); MONOCYTE COUNT 0.6 K/uL (0-0.8); NEUTROPHIL (%) 83.3 % (45-76); NEUTROPHIL COUNT 8.3 K/uL (1.8-6.4); RBC DIS.WIDTH-CV 15.1 % (11.8-14.6); RBC DIS.WIDTH-SD 42.4 % (39-53); RED BLOOD COUNT 5.06 M/uL (3.80-5.20); WHITE BLOOD COUNT 9.9 K/uL (4.1-10.2)
[2017-07-03 14:45] LABS: MCV 77.7 FL (83-99); PLATELET COUNT 221 K/uL (156-360)
[2017-07-03 14:54] LABS: ALBUMIN 3.5 g/dL (3.2-4.8); CHLORIDE 103 mEq/L (99-109); SODIUM 135 mEq/L (136-147)
[2017-07-03 14:56] LABS: GLUCOSE 92 mg/dL (70-99); TOTAL PROTEIN 7.4 g/dL (6.4-8.3)
[2017-07-03 14:58] LABS: TOTAL BILIRUBIN 0.6 mg/dL (0.0-1.0)
[2017-07-03 15:00] LABS: ALKALINE PHOSPHATASE 100 IU/L (3-129); CREATININE 0.8 mg/dL (0.6-1.3); GFR ESTIMATE (CALCULATED) > 59 mL/min/
[2017-07-03 15:01] LABS: UREA NITROGEN (BUN) 7 mg/dL (9-23)
[2017-07-03 15:02] LABS: AST (GOT) 15 IU/L (2-34)
[2017-07-03 15:03] LABS: ALT (GPT) 13 IU/L (3-49)
[2017-07-03 15:29] LABS: C-REACTIVE PROTEIN 20.8 MG/L (0-10)
[2017-07-03 16:22] LABS: ERTH.SED.RATE 38 MM/HR (0-30)
[2017-07-03] MEDS ORDERED: OXYCODONE HCL20 M1 PO (16:41)
[2017-07-03 16:42] LABS: HDL CHOLESTEROL 63 MG/DL (Desirable>=50); LDL CHOLESTEROL 69 mg/dL (Desirable<100); NON-HDL CHOLESTEROL 86 mg/dL (Desirable<160); TOTAL CHOLESTEROL 149 mg/dL (Desirable<200); TRIGLYCERIDES 83 MG/DL (Normal: <150)
[2017-07-03] MEDS ORDERED: LORAZEPAM0.5 MG PO (16:44)
[2017-07-03] MEDS ORDERED: MELATONIN3 MG PO (16:46)
[2017-07-03] MEDS ORDERED: ROPINIROLE HC0.25 MG PO (16:53)
[2017-07-03 18:07] VITALS: BP 137/81
[2017-07-03 20:00] VITALS: BP 141/79
[2017-07-04] VITALS: BP 129/84
[2017-07-04 03:33] VITALS: BP 120/76
[2017-07-04 05:54] LABS: BASOPHIL (%) 0.3 % (0-1); EOSINOPHIL (%) 0.5 % (0-5); HEMATOCRIT 36.8 % (36.0-46.0); HEMOGLOBIN 11.8 G/DL (11.9-15.5); IMMATURE GRANULOCYTE (%) 0.2 % (0.0-0.7); LYMPHOCYTE (%) 15.3 % (15-42); LYMPHOCYTE COUNT 1.4 K/uL (1.0-2.8); MCH 25.1 PG (29.0-34.0); MCHC 32.1 G/DL (30.0-36.0); MCV 78.3 FL (83-99); MONOCYTE (%) 5.9 % (3-12); MONOCYTE COUNT 0.5 K/uL (0-0.8); NEUTROPHIL (%) 77.8 % (45-76); NEUTROPHIL COUNT 6.9 K/uL (1.8-6.4); PLATELET COUNT 196 K/uL (156-360); RBC DIS.WIDTH-CV 15.2 % (11.8-14.6); RBC DIS.WIDTH-SD 43.7 % (39-53); WHITE BLOOD COUNT 8.8 K/uL (4.1-10.2)
[2017-07-04 06:27] LABS: CHLORIDE 102 MEQ/L (99-109); CREATININE 0.8 MG/DL (0.6-1.3); GFR ESTIMATE (CALCULATED) > 59 mL/min/; GLUCOSE 77 mg/dL (70-99); POTASSIUM 3.1 MEQ/L (3.7-5.4); SODIUM 137 MEQ/L (136-147); UREA NITROGEN (BUN) 8 mg/dL (9-23)
[2017-07-04 07:22] VITALS: BP 128/67
[2017-07-04 11:46] VITALS: BP 89/61
[2017-07-04 15:35] LABS: BENZODIAZEPINES, URINE SCREEN Negative (200 ng/mL)
[2017-07-04 16:11] VITALS: BP 114/68
[2017-07-04 19:00] VITALS: BP 113/68
[2017-07-05 00:09] VITALS: BP 127/77
[2017-07-05 04:00] VITALS: BP 130/82
[2017-07-05 05:40] LABS: BASOPHIL (%) 0.5 % (0-1); EOSINOPHIL (%) 1.1 % (0-5); EOSINOPHIL COUNT 0.1 K/uL (0-0.3); HEMATOCRIT 36.8 % (36.0-46.0); HEMOGLOBIN 12.1 G/DL (11.9-15.5); IMMATURE GRANULOCYTE (%) 0.5 % (0.0-0.7); LYMPHOCYTE (%) 19.1 % (15-42); LYMPHOCYTE COUNT 1.3 K/uL (1.0-2.8); MCH 26.5 PG (29.0-34.0); MCHC 32.9 G/DL (30.0-36.0); MCV 80.7 FL (83-99); MONOCYTE (%) 6.5 % (3-12); MONOCYTE COUNT 0.4 K/uL (0-0.8); NEUTROPHIL (%) 72.3 % (45-76); NEUTROPHIL COUNT 4.8 K/uL (1.8-6.4); PLATELET COUNT 168 K/uL (156-360); RBC DIS.WIDTH-CV 15.7 % (11.8-14.6); RBC DIS.WIDTH-SD 45.4 % (39-53); RED BLOOD COUNT 4.56 M/uL (3.80-5.20); WHITE BLOOD COUNT 6.7 K/uL (4.1-10.2)
[2017-07-05 06:12] LABS: CHLORIDE 104 MEQ/L (99-109); CREATININE 0.7 MG/DL (0.6-1.3); GFR ESTIMATE (CALCULATED) > 59 mL/min/; POTASSIUM 3.4 MEQ/L (3.7-5.4); SODIUM 138 MEQ/L (136-147); UREA NITROGEN (BUN) 10 mg/dL (9-23)
[2017-07-05 06:13] LABS: GLUCOSE 97 mg/dL (70-99)
[2017-07-05 11:43] VITALS: BP 91/59
[2017-07-05 13:01] LABS: FOLIC ACID (FOLATE) 21.3 NG/ML (5.0-22.0)
[2017-07-05 19:10] VITALS: BP 142/91
[2017-07-05 23:09] VITALS: BP 152/89
[2017-07-06 04:23] VITALS: BP 127/90
[2017-07-06 11:44] VITALS: BP 125/74
[2017-07-06 16:48] VITALS: BP 118/76
[2017-07-06 19:20] VITALS: BP 130/88
[2017-07-06 23:22] VITALS: BP 138/89
[2017-07-07 08:15] VITALS: BP 133/87
[2017-07-07 16:08] VITALS: BP 131/68
[2017-07-07 19:45] VITALS: BP 129/75
[2017-07-07 23:47] VITALS: BP 127/77
[2017-07-08 05:35] LABS: HEMATOCRIT 38.6 % (36.0-46.0); HEMOGLOBIN 12.2 G/DL (11.9-15.5); MCH 25.5 PG (29.0-34.0); MCHC 31.6 G/DL (30.0-36.0); MCV 80.8 FL (83-99); PLATELET COUNT 190 K/uL (156-360); RBC DIS.WIDTH-CV 16.1 % (11.8-14.6); RBC DIS.WIDTH-SD 46.5 % (39-53); RED BLOOD COUNT 4.78 M/uL (3.80-5.20); WHITE BLOOD COUNT 6.5 K/uL (4.1-10.2)
[2017-07-08 05:57] LABS: ALBUMIN 3.2 G/DL (3.2-4.8); ALKALINE PHOSPHATASE 78 IU/L (3-129); ALT (GPT) 11 IU/L (3-49); AST (GOT) 14 IU/L (2-34); CHLORIDE 104 MEQ/L (99-109); CREATININE 0.6 MG/DL (0.6-1.3); GFR ESTIMATE (CALCULATED) > 59 mL/min/; GLUCOSE 96 mg/dL (70-99); SODIUM 137 MEQ/L (136-147); TOTAL BILIRUBIN 0.4 MG/DL (0.0-1.0); TOTAL PROTEIN 6.6 G/DL (6.4-8.3); UREA NITROGEN (BUN) 9 mg/dL (9-23)
[2017-07-08 09:07] VITALS: BP 128/82
[2017-07-08 11:07] VITALS: BP 137/83
[2017-07-08 19:45] VITALS: BP 136/77
[2017-07-09 00:52] VITALS: BP 104/67
[2017-07-09 04:12] VITALS: BP 141/86
[2017-07-09 05:55] LABS: HEMATOCRIT 38.3 % (36.0-46.0); HEMOGLOBIN 12.1 G/DL (11.9-15.5); MCH 25.5 PG (29.0-34.0); MCHC 31.6 G/DL (30.0-36.0); MCV 80.8 FL (83-99); PLATELET COUNT 188 K/uL (156-360); RBC DIS.WIDTH-CV 16.1 % (11.8-14.6); RED BLOOD COUNT 4.74 M/uL (3.80-5.20); WHITE BLOOD COUNT 5.5 K/uL (4.1-10.2)
[2017-07-09 06:32] LABS: ALBUMIN 3.1 G/DL (3.2-4.8); ALKALINE PHOSPHATASE 78 IU/L (3-129); ALT (GPT) 11 IU/L (3-49); AST (GOT) 13 IU/L (2-34); CHLORIDE 105 MEQ/L (99-109); CREATININE 0.6 MG/DL (0.6-1.3); GFR ESTIMATE (CALCULATED) > 59 mL/min/; GLUCOSE 113 mg/dL (70-99); POTASSIUM 4.3 MEQ/L (3.7-5.4); SODIUM 140 MEQ/L (136-147); TOTAL PROTEIN 6.2 G/DL (6.4-8.3); UREA NITROGEN (BUN) 10 mg/dL (9-23)
[2017-07-09 06:34] LABS: TOTAL BILIRUBIN 0.3 MG/DL (0.0-1.0)
[2017-07-09 08:09] VITALS: BP 112/78
[2017-07-09 11:36] VITALS: BP 119/75
[2017-07-09 15:54] VITALS: BP 121/74
[2017-07-09 19:00] VITALS: BP 128/72
[2017-07-10 00:15] VITALS: BP 122/77
[2017-07-10 03:00] VITALS: BP 110/68
[2017-07-10 06:21] LABS: HEMATOCRIT 37.8 % (36.0-46.0); HEMOGLOBIN 11.8 G/DL (11.9-15.5); MCH 25.3 PG (29.0-34.0); MCHC 31.2 G/DL (30.0-36.0); MCV 80.9 FL (83-99); PLATELET COUNT 207 K/uL (156-360); RBC DIS.WIDTH-SD 46.8 % (39-53); RED BLOOD COUNT 4.67 M/uL (3.80-5.20); WHITE BLOOD COUNT 5.6 K/uL (4.1-10.2)
[2017-07-10 06:50] LABS: ALBUMIN 3.1 G/DL (3.2-4.8); ALKALINE PHOSPHATASE 76 IU/L (3-129); ALT (GPT) 12 IU/L (3-49); AST (GOT) 15 IU/L (2-34); CHLORIDE 104 MEQ/L (99-109); CREATININE 0.6 MG/DL (0.6-1.3); GFR ESTIMATE (CALCULATED) > 59 mL/min/; GLUCOSE 127 mg/dL (70-99); POTASSIUM 4.2 MEQ/L (3.7-5.4); SODIUM 138 MEQ/L (136-147); TOTAL BILIRUBIN 0.3 MG/DL (0.0-1.0); TOTAL PROTEIN 6.1 G/DL (6.4-8.3); UREA NITROGEN (BUN) 14 mg/dL (9-23)
[2017-07-10 09:30] VITALS: BP 115/70
[2017-07-10 15:50] VITALS: BP 154/92
[2017-07-10 20:00] VITALS: BP 135/80
[2017-07-11 05:17] VITALS: BP 134/80
[2017-07-11 11:40] VITALS: BP 137/73
[2017-07-11 15:49] VITALS: BP 104/61
[2017-07-11 19:40] VITALS: BP 118/80
[2017-07-12 00:04] VITALS: BP 119/73
[2017-07-12 12:23] VITALS: BP 121/67
[2017-07-12 15:51] VITALS: BP 134/76
[2017-07-12 20:49] VITALS: BP 113/77
[2017-07-13 01:20] VITALS: BP 108/71
[2017-07-13 07:00] VITALS: BP 134/79
[2017-07-13 11:00] VITALS: BP 156/86
[2017-07-13 16:00] VITALS: BP 150/84
[2017-07-13 19:50] VITALS: BP 116/71
[2017-07-14 00:46] VITALS: BP 101/63
[2017-07-14 09:05] VITALS: BP 112/62
[2017-07-14 12:16] VITALS: BP 112/67
[2017-07-14 15:47] VITALS: BP 111/60
[2017-07-14 19:21] VITALS: BP 122/61
[2017-07-15 00:01] VITALS: BP 110/67
[2017-07-15 08:14] VITALS: BP 141/90
[2017-07-15 10:38] LABS: HEMATOCRIT 36.5 % (36.0-46.0); HEMOGLOBIN 11.6 G/DL (11.9-15.5); MCH 26.3 PG (29.0-34.0); MCHC 31.8 G/DL (30.0-36.0); MCV 82.8 FL (83-99); PLATELET COUNT 215 K/uL (156-360); RBC DIS.WIDTH-CV 15.8 % (11.8-14.6); RBC DIS.WIDTH-SD 47.5 % (39-53); RED BLOOD COUNT 4.41 M/uL (3.80-5.20); WHITE BLOOD COUNT 7.3 K/uL (4.1-10.2)
[2017-07-15 11:02] LABS: CHLORIDE 100 MEQ/L (99-109); CREATININE 0.6 MG/DL (0.6-1.3); GFR ESTIMATE (CALCULATED) > 59 mL/min/; GLUCOSE 148 mg/dL (70-99); POTASSIUM 4.4 MEQ/L (3.7-5.4); SODIUM 137 MEQ/L (136-147); UREA NITROGEN (BUN) 18 mg/dL (9-23)
[2017-07-15 11:27] VITALS: BP 105/55
[2017-07-15 15:33] VITALS: BP 122/82
== END 2017-07-15 18:13 | DRG 392 ==
LOC: EME 10:19 → EDOF 15:39 → ENRESERV 15:41 → 5WEST 17:35 → ENPENDDIS 07-10 → 5WEST 07-11 00:21
PROVIDERS: Emergency Medicine; Hospitalist; Internal Medicine; Physician Assistant; Physician Assistant Medical
PROC: 0DHA4UZ Insertion of Feeding Device into Jejunum, Percutaneous Endoscopic Approach (ICD-10-PCS; principal; 2017-07-07)
DX: K22.4 Dyskinesia of esophagus (principal); R64 Cachexia; R13.10 Dysphagia, unspecified; R62.7 Adult failure to thrive; Z85.01 Personal history of malignant neoplasm of esophagus; N39.0 Urinary tract infection, site not specified; M79.7 Fibromyalgia; Z90.3 Acquired absence of stomach [part of]; Z98.1 Arthrodesis status; Z98.84 Bariatric surgery status; Z96.659 Presence of unspecified artificial knee joint; B96.20 Unspecified Escherichia coli [E. coli] as the cause of diseases classified elsewhere; C15.9 Malignant neoplasm of esophagus, unspecified; E87.6 Hypokalemia; K21.0 Gastro-esophageal reflux disease with esophagitis; J44.9 Chronic obstructive pulmonary disease, unspecified; K44.9 Diaphragmatic hernia without obstruction or gangrene; G89.4 Chronic pain syndrome; K31.84 Gastroparesis; K56.7 Ileus, unspecified; M06.9 Rheumatoid arthritis, unspecified; R29.6 Repeated falls; R63.3 Feeding difficulties; Z87.891 Personal history of nicotine dependence; F41.9 Anxiety disorder, unspecified; R53.1 Weakness; R41.82 Altered mental status, unspecified; E11.43 Type 2 diabetes mellitus with diabetic autonomic (poly)neuropathy; Z87.442 Personal history of urinary calculi
CPT/HCPCS: 70551; 71010; 72156; 72157; 72158; 74018; 74176; 74220; 80048; 80053; 80061; 80306 90; 81003; 82607; 82746; 83605; 85025; 85027; 85651; 86140; 87040; 87077; 87086; 87186; 87641; 93005; 97530 GO; 97530 GP; 99281; 99284; A6214; B4087; G0378; G8978 GP CJ; G8979 GP CI; G8987 CK; G8991 GO CJ; J0330; J0696; J1170; J1650; J2250; J2405; J3010; J7512

== ENCOUNTER 2017-09-29 21:52 | Inpatient (IN) | payer OTHER ==
[~2017-09-29] VITALS: Ht 160 cm; Wt 60.1 kg
[~2017-09-29 21:52] MED LIST changes: +AMITRIPTYLINE H75 MG GT; +MELATONIN3 MG PO; +ROPINIROLE HC0.25 MG PO; +SUCRALFATE1 GM GT
[2017-09-29 23:01] LABS: BASOPHIL (%) 0.5 % (0-1); EOSINOPHIL (%) 0.8 % (0-5); HEMATOCRIT 37.8 % (36.0-46.0); HEMOGLOBIN 13.1 G/DL (11.9-15.5); IMMATURE GRANULOCYTE (%) 0.5 % (0.0-0.7); LYMPHOCYTE (%) 27.8 % (15-42); LYMPHOCYTE COUNT 1.1 K/uL (1.0-2.8); MCH 28.8 PG (29.0-34.0); MCHC 34.7 G/DL (30.0-36.0); MCV 83.1 FL (83-99); MONOCYTE COUNT 0.4 K/uL (0-0.8); NEUTROPHIL (%) 59.4 % (45-76); NEUTROPHIL COUNT 2.3 K/uL (1.8-6.4); PLATELET COUNT 179 K/uL (156-360); RBC DIS.WIDTH-CV 17.3 % (11.8-14.6); RBC DIS.WIDTH-SD 52.3 % (39-53); RED BLOOD COUNT 4.55 M/uL (3.80-5.20); WHITE BLOOD COUNT 3.8 K/uL (4.1-10.2)
[2017-09-29 23:12] LABS: ALBUMIN 3.2 g/dL (3.2-4.8); CHLORIDE 104 mEq/L (99-109); POTASSIUM 3.6 mEq/L (3.7-5.4); SODIUM 133 mEq/L (136-147)
[2017-09-29 23:14] LABS: GLUCOSE 86 mg/dL (70-99)
[2017-09-29 23:16] LABS: TOTAL BILIRUBIN 0.3 mg/dL (0.0-1.0)
[2017-09-29 23:18] LABS: ALKALINE PHOSPHATASE 114 IU/L (3-129); CREATININE 0.6 mg/dL (0.6-1.3); GFR ESTIMATE (CALCULATED) > 59 mL/min/
[2017-09-29 23:19] LABS: AST (GOT) 14 IU/L (2-34); UREA NITROGEN (BUN) 12 mg/dL (9-23)
[2017-09-29 23:21] LABS: ALT (GPT) 29 IU/L (3-49)
[2017-09-29 23:22] LABS: TROP-I INTERPRETATION NEGATIVE; TROPONIN-I < 0.01 ng/mL (0.0-0.30)
[2017-09-30 07:34] VITALS: BP 136/76
[2017-09-30 11:32] VITALS: BP 161/88
[2017-09-30] MEDS ORDERED: CYMBALTA60 MG PO (13:52)
[2017-09-30] MEDS ORDERED: CYMBALTA30 MG PO (13:52)
[2017-09-30] MEDS ORDERED: LINZESS145 MCG PO (13:53)
[2017-09-30] MEDS ORDERED: MIRALAX17 GM PO (13:54)
[2017-09-30] MEDS ORDERED: PREDNISONE2.5 MG PO (13:55)
[2017-09-30] MEDS ORDERED: REMERON30 M2 PO (13:55)
[2017-09-30] MEDS ORDERED: REQUIP0.5 MG GT (13:56)
[2017-09-30] MEDS ORDERED: ALLEGRA-D 121 TABLET PO (13:57)
[2017-09-30] MEDS ORDERED: CLONAZEPAM0.5 MG PO (13:58)
[2017-09-30] MEDS ORDERED: COLACE100 MG PO (13:59)
[2017-09-30] MEDS ORDERED: OMEPRAZOLE20 MG PO (14:00)
[2017-09-30] MEDS ORDERED: ROBITUSSIN DM118 ML PO (14:01)
[2017-09-30] MEDS ORDERED: TOPAMAX25 MG PO (14:02)
[2017-09-30] MEDS ORDERED: FEOSOL325 MG PO (14:02)
[2017-09-30] MEDS ORDERED: GABAPENTIN100 MG PO (14:03)
[2017-09-30] MEDS ORDERED: SOMA350 MG PO (14:04)
[2017-09-30] MEDS ORDERED: OXYCODONE HCL15 MG PO (14:06)
[2017-09-30] MEDS ORDERED: ALBUTEROL2.5 MG/3 M IH (14:08)
[2017-09-30] MEDS ORDERED: DULCOLAX10 MG PR (14:09)
[2017-09-30] MEDS ORDERED: PAIN RELIE160 MG/52 GT (14:11)
[2017-09-30] MEDS ORDERED: ZOFRAN4 MG PO (14:11)
[2017-09-30 15:56] VITALS: BP 147/89
[2017-09-30 19:30] VITALS: BP 134/82
[2017-09-30 23:25] VITALS: BP 125/45
[2017-10-01 03:58] VITALS: BP 115/80
[2017-10-01 07:09] VITALS: BP 152/90
[2017-10-01 12:05] VITALS: BP 132/83
[2017-10-01 17:03] VITALS: BP 148/104
[2017-10-01 21:09] VITALS: BP 146/98
[2017-10-02 00:14] VITALS: BP 130/60
[2017-10-02 03:55] VITALS: BP 132/57
[2017-10-02 11:38] VITALS: BP 108/67
[2017-10-02 15:28] VITALS: BP 106/70
[2017-10-02] MEDS ORDERED: TOPIRAMATE25 MG PO (15:53)
[2017-10-02] MEDS ORDERED: FEOSOL325 MG PO (15:53)
[2017-10-02] MEDS ORDERED: MORPHINE SULFAT15 M1 PO (15:53)
[2017-10-03 00:10] VITALS: BP 122/55
[2017-10-03 07:09] VITALS: BP 100/67
== END 2017-10-03 11:02 | DRG 103 ==
LOC: EME → EDBD 21:52 → EDOF 09-30 04:00 → ENRESERV 09-30 04:53 → 2EAST 09-30 07:40
PROVIDERS: Emergency Medicine
DX: G43.909 Migraine, unspecified, not intractable, without status migrainosus (principal); J20.8 Acute bronchitis due to other specified organisms; J44.9 Chronic obstructive pulmonary disease, unspecified; K21.9 Gastro-esophageal reflux disease without esophagitis; F32.9 Major depressive disorder, single episode, unspecified; M79.7 Fibromyalgia; E11.9 Type 2 diabetes mellitus without complications; M06.9 Rheumatoid arthritis, unspecified; M47.816 Spondylosis without myelopathy or radiculopathy, lumbar region; G89.4 Chronic pain syndrome; Z85.01 Personal history of malignant neoplasm of esophagus; Z87.442 Personal history of urinary calculi; Z87.891 Personal history of nicotine dependence; Z98.84 Bariatric surgery status; Z93.4 Other artificial openings of gastrointestinal tract status; Z98.1 Arthrodesis status
CPT/HCPCS: 70450; 71045; 80053; 83605; 84484; 85025; 87040; 87641; 93005; 94640; 94640 76; 99202; 99281; 99284; J1644; J2405; J2543; J3370; J7050; J7512

== ENCOUNTER 2017-11-14 22:26 | Emergency (ER) | payer OTHER ==
[~2017-11-14] VITALS: Ht 160 cm; Wt 66.6 kg
[~2017-11-14 22:26] MED LIST changes: +ALBUTEROL2.5 MG/3 M IH; +ALLEGRA-D 121 TABLET PO; -AMITRIPTYLINE H75 MG GT; +CLONAZEPAM0.5 MG PO; +COLACE100 MG PO; +CYMBALTA30 MG PO; +CYMBALTA60 MG PO; +DULCOLAX10 MG PR; +FEOSOL325 MG PO; +LINZESS145 MCG PO; +MORPHINE SULFAT15 M1 PO; +OMEPRAZOLE20 MG PO; +OXYCODONE HCL15 MG PO; +PAIN & FEVER325 MG PO; +REMERON30 M2 PO; +REQUIP1 MG PO; +ROBITUSSIN DM118 ML PO; +SOMA350 MG PO; +TOPAMAX25 MG PO; +TOPIRAMATE25 MG PO
[2017-11-14] MEDS ORDERED: FLEET ENEMA-AD118 ML PR (23:27)
[2017-11-14] MEDS ORDERED: IPRATR-ALBUTEROL3 ML IH (23:31)
[2017-11-14] MEDS ORDERED: MILK OF MAGN PO (23:34)
[2017-11-14] MEDS ORDERED: MIRALAX17 GM PO (23:35)
[2017-11-14] MEDS ORDERED: PRUNE JUICE PO (23:42)
[2017-11-14] MEDS ORDERED: IMITREX100 MG PO (23:46)
[2017-11-14] MEDS ORDERED: TYLENOL REGULA325 MG PO (23:47)
[2017-11-15 00:37] VITALS: BP 118/86
== END 2017-11-15 00:39 ==
LOC: EME 22:26
DX: Z43.4 Encounter for attention to other artificial openings of digestive tract (principal); Z85.01 Personal history of malignant neoplasm of esophagus; J44.9 Chronic obstructive pulmonary disease, unspecified; K21.9 Gastro-esophageal reflux disease without esophagitis; G62.9 Polyneuropathy, unspecified; M79.7 Fibromyalgia; G89.29 Other chronic pain; M54.9 Dorsalgia, unspecified; R62.7 Adult failure to thrive; G43.909 Migraine, unspecified, not intractable, without status migrainosus; F41.9 Anxiety disorder, unspecified; F32.9 Major depressive disorder, single episode, unspecified; Z79.51 Long term (current) use of inhaled steroids; Z79.891 Long term (current) use of opiate analgesic; Z87.891 Personal history of nicotine dependence; Z91.81 History of falling; Z87.442 Personal history of urinary calculi; Z90.49 Acquired absence of other specified parts of digestive tract; Z98.84 Bariatric surgery status; Z96.653 Presence of artificial knee joint, bilateral; Z96.643 Presence of artificial hip joint, bilateral; Z91.040 Latex allergy status; Z88.5 Allergy status to narcotic agent; Z91.048 Other nonmedicinal substance allergy status
CPT/HCPCS: 99281; 99284

== ENCOUNTER → 2017-11-15 | Outpatient (CLI) | payer OTHER ==
[~2017-11-15] MED LIST changes: +FLEET ENEMA-AD118 ML PR; +IMITREX100 MG PO; +IPRATR-ALBUTEROL3 ML IH; +MILK OF MAGN PO; +PRUNE JUICE PO; +TYLENOL REGULA325 MG PO
== END ==
LOC: RAD 11:00
PROC: 0D2DXUZ Change Feeding Device in Lower Intestinal Tract, External Approach (ICD-10-PCS; principal; 2017-11-15)
DX: K94.10 Enterostomy complication, unspecified (principal)
CPT/HCPCS: 75984

== ENCOUNTER 2017-12-30 05:22 | Emergency (ER) | payer OTHER ==
[~2017-12-30] VITALS: Ht 160 cm; Wt 65.9 kg
[2017-12-30 11:13] VITALS: BP 118/94
== END 2017-12-30 11:23 ==
LOC: EME 05:22
PROC: 0D20XUZ Change Feeding Device in Upper Intestinal Tract, External Approach (ICD-10-PCS; principal; 2017-12-30)
DX: K94.23 Gastrostomy malfunction (principal); Z46.59 Encounter for fitting and adjustment of other gastrointestinal appliance and device; J44.9 Chronic obstructive pulmonary disease, unspecified; K21.9 Gastro-esophageal reflux disease without esophagitis; M79.7 Fibromyalgia; G62.9 Polyneuropathy, unspecified; G89.29 Other chronic pain; M54.9 Dorsalgia, unspecified; G43.909 Migraine, unspecified, not intractable, without status migrainosus; R62.7 Adult failure to thrive; F41.9 Anxiety disorder, unspecified; F32.9 Major depressive disorder, single episode, unspecified; Z79.891 Long term (current) use of opiate analgesic; Z79.52 Long term (current) use of systemic steroids; Z87.891 Personal history of nicotine dependence; Z98.84 Bariatric surgery status; Z86.79 Personal history of other diseases of the circulatory system; Z87.442 Personal history of urinary calculi; Z98.890 Other specified postprocedural states; Z96.643 Presence of artificial hip joint, bilateral; Z96.653 Presence of artificial knee joint, bilateral; Z90.49 Acquired absence of other specified parts of digestive tract; Z85.01 Personal history of malignant neoplasm of esophagus; Z91.040 Latex allergy status; Z88.5 Allergy status to narcotic agent; Z91.048 Other nonmedicinal substance allergy status
CPT/HCPCS: 74018; 99281; 99285